=== PATIENT | female | born 1995 | race Caucasian/White ===

== ENCOUNTER 2018-07-05 08:43 | Day surgery (SDC) | payer MEDICAID, SELFPAY ==
[2018-07-04 15:42] LABS: Hematocrit 40.8 % (37-47); Hemoglobin 13.2 g/dl (12.0-15.0); Mean Corp Hgb Conc 32.4 g/gl (32-36); Mean Corpuscular Hgb 29.6 pg (27.0-32.0); Mean Corpuscular Volume 91.5 fL (81-99); Mean Platelet Vol. 9.4 fl (6.2-12.0); Platelet Count 259 K/mm3 (150-450); RBC Distribution Width CV 12.6 % (11.6-14.6); RBC Distribution Width SD 41.7 fl (35.1-43.9); Red Blood Count 4.46 M/mm3 (4.2-5.4); White Blood Count 6.4 K/mm3 (4.4-11.0)
[2018-07-04 15:50] LABS: Prothrombin Time (Protime)PT. 13.4 SECONDS (11.7-14.9)
[2018-07-04 15:51] LABS: Partial Thromboplast Time 31.3 Seconds (24.1-36.2)
[2018-07-04 15:56] LABS: Scan Indicated on CBC? Y/N NO
[2018-07-04 16:22] LABS: Pregnancy, Serum, hCG Quali. NEGATIVE Negative (0-9 Nonpreg)
--- NOTE | 2018-07-05 | FALS_PTH ---
PATIENT: SHA LOPEZ LOC: [facility] – [place] U#:[id number] AGE/SX: 23/ ROOM: RE07/05/[address]: Dr. Varghese Loya MD : [id number] BED: DIS: 07/05/2018 SPEC #: [id number] RECD: 07/05/18 15:25 STATUS: PHILLIP TATI #: [id number] CARINE: 07/05/18 00:[address]: Varghese Loya DEPT: SURGICAL PATHOLOGY RECD BY: Mitch Carmona ENTERED: 07/06/18 07:51 SP TYPE: FALL TUBES OTHR DR: No Primary Care Phys Tissues: Fallopian tube Procedures: Surgery Specimen Level II HEADER OPERATION: Laparoscopic salpingectomy PRE-OP DIAGNOSIS: Desired sterilization TISSUE SUBMITTED: Bilateral fallopian tubes MICROSCOPIC DIAGNOSIS Bilateral fallopian tubes, salpingectomy: Bilateral fallopian tubes including fimbrial ends, no pathologic diagnosis. SJ:mau 2/15/19 MICROSCOPIC DESCRIPTION Slides are reviewed. GROSS DESCRIPTION Received is one container labeled with the patient's name and designated bilateral fallopian tubes. The specimen consists of bilateral fallopian tubes including fimbrial ends with no orientation measuring 7 cm in length and 0.5 cm in diameter and 6.5 cm in length and 0.5 cm in diameter. Sections reveal unremarkable cut surfaces. Packer Operator Automatic sections are submitted in two cassettes with each cassette containing one fallopian tube. / DAVID:mau 07/06/18 TC:4 CPT: 62456 x2
[2018-07-05 09:01] LABS: Internal QC Validated? YES +Cl - CLEAR BKGD
[2018-07-05 09:05] VITALS: BP 115/67; PULSE 63; RESP 18; TEMP 37; O2SAT 100; BMI 22.3
[2018-07-05 09:07] LABS: Pregnancy, Urine Negative Negative
--- NOTE | 2018-07-05 10:22 | DCINST_ITS ---
You will use the following diet at home:: No restrictions Your food should be the consistency of: Regular Discharge Activity: May Drive, May not drive while taking narcotic pain medications., May Shower Return to work on:: 07/10/18 May shower in (days): 0 May resume sexual activity in: 2 weeks Call your doctor if your incision/area has: Sudden Increased Bleeding, Increased Pain/ Swelling, Increased Redness, Foul Smelling Discharge, Swelling at the incision site Call your doctor if you observe: Fever of 101 or Higher, Inability to urinate, Inability to have a bowel movement, Using more than one pad per hour, Shortness of breath, Chest pain, Calf discomfort, Uncontrolled pain Remove Dressing in (days):: 2 Cleanse incision/area with: Soap & Water Allergies/Adverse Reactions: Allergies No Known Allergies Allergy (Verified 06/28/18 10:04) Medications to take at Discharge Ibuprofen 600 mg PO 4X/DAY #30 tab 07/05/18 Oxycodone [Oxyir] 5 mg PO Q4H PRN PRN 7 Days #20 tab 07/05/18 The following prescriptions were given: Oxycodone [Oxyir] 5 mg PO Q4H PRN PRN 7 Days #20 tab PRN Reason: strong pain Ibuprofen 600 mg PO 4X/DAY #30 tab Primary Care Physician: Care Physician,No Primary [Primary Care Provider] - Test Results: Test results from this visit will be discussed in further detail at your follow- up appointment, if applicable. Please Follow Up With: Varghese Loya MD When: one week Proposed Discharge Date: 07/05/18
--- NOTE | 2018-07-05 11:24 | PCM.OPRPT ---
Report of Operation Date of Procedure: 07/05/18 Pre-Operative Diagnosis: Requests Permanant Sterilization Post-Operative Diagnosis: Same Surgery/Procedure Performed:: Laparoscopic Bilateral Salpingectomy Description of Surgical Findings:: Normal appearing uterus, ovaries, and fallopian tubes. Normal appearing liver, gallbladder and stomach. No pelvic adhesions noted. lead applications developer: Jose Manuel Sevilla Type of Anesthesia:: General Anesthesiologist: Colin Mcgovern Special Medications: none Specimen's removed: right and left fallopian tubes Drains: none Estimated Blood Loss (mL): 25cc Fluids Replaced: 1200cc Description of Procedure: Vinod was taken tot he OR with IV running. She reconfirmed desire for permanent sterilization prior to the procedure. She was given two grams of Cefotetan intravenously prior to the procedure. General anesthesia was introduced without complication. She was prepped and draped in the dorsal lithotomy position. A red rubber catheter was used to drain the bladder. A uterine manipulator was placed. Attention was then directed tot he abdomen. A 5mm vertical incision was made in the lower base of the umbilicus. The underlying subcutaneous tissue was bluntly dissected down to the level of the fascia with a Ember clamp. The abdominal wall was then elevated and a Veress needle was placed through the umbilical defect into the abdominal cavity. The abdomen was then inflated with CO2 gas to 15 Torr. The Veress needle was then removed and replaced with a 5mm laparoscopic trocar and sleeve. The trocar was removed and replaced with the laparoscope. Findings were as above. Two lateral side ports were placed one on the left and one on the right. Each were 5mm laparoscopic ports. The were placed about 4cm below the level of the umbilicus, lateral to the inferior epigastric vessels. The left fallopian tube was grasped at the fimbriated end, elevated and the Mesosalpinx dissected with the Ligasure device from the fimbriated end to the cornua of the uterus. The tube was then amputated at the cornua. The tube was removed through the right laparoscopic port. The right fallopian tube was dissected and removed in a similar fashion. Hemostasis was excellent. The laparoscopic ports were then removed and the gas evacuated. The skin incisions were closed with 4-0 monocryl suture. The skin sites were injected with 0.25% Marcaine. The uterine manipulator was removed. Vinod was reversed from anesthesia without complication and taken to the recovery room in stable condition. Sponge, instrument, and needle counts were correct. Grafts/Implants Used: none - Complications none - Admit VTE Documentation VTE Present on Admission: No VTE Mechan Device Prophylaxis: SCD's VTE Pharm Prophylaxis ordered?: No
[2018-07-05] MEDS: Bupivacaine 0.25% 30 ML Vial (11:50)
[2018-07-05 12:07] VITALS: BP 115/67; BP 118/69; PULSE 60; RESP 16; TEMP 36.2; O2SAT 92
[2018-07-05 12:15] VITALS: BP 106/66; BP 115/67; PULSE 60; RESP 16; O2SAT 99
[2018-07-05 12:30] VITALS: BP 105/64; BP 115/67; PULSE 68; RESP 18; O2SAT 100
[2018-07-05 12:40] VITALS: BP 108/54; BP 115/67; PULSE 69; RESP 16; TEMP 36.5; O2SAT 100
[2018-07-05 13:07] VITALS: BP 111/55; BP 115/67; PULSE 61; RESP 16; TEMP 36.6; O2SAT 100
== END 2018-07-05 13:19 | disposition home or self-care (01) ==
LOC: SDC 08:43 → AC 08:44
PROVIDERS: Anesthesiology; Referring Provider Obstetrics & Gynecology; Visit Provider Obstetrics & Gynecology
PROC: (CPT 58661; principal; 2018-07-05 10:00)
DX: Z30.2 Encounter for sterilization (principal); K21.9 Gastro-esophageal reflux disease without esophagitis; Z87.891 Personal history of nicotine dependence
CPT/HCPCS: 58661; 36415; 81025; 84703; 85027; 85610; 85730; 86850; 86900; 88302; J7120; J2405